=== PATIENT | female | born 1990 | race Caucasian/White ===

== ENCOUNTER 2021-10-13 22:16 | Emergency (ER) | payer BC, MEDICAID ==
[~2021-10-13 22:16] MED LIST: DEPOPROVERA SHOT
[2021-10-13 22:50] VITALS: BP_SYST 113; BP_SYST 116; BP_SYST 118; BP_DIAS 63; BP_DIAS 65; BP_DIAS 67
--- NOTE | 2021-10-13 22:50 | ED Syncope ---
General Chief Complaint: Dizziness/Syncope Stated Complaint: DIZZINESS, Source of Information: Patient Exam Limitations: No Limitations History of Present Illness Date Seen by Provider: Oct 13, 2021 Time Seen by Provider: 22:33 Initial Comments Patient presents to the ER by private conveyance with her significant other and chief complaint that last night between the hours of 8:00 and midnight she had about 4 hours of an episode of dizziness. She states her vision felt blurry and she felt like she was drunk. It went away spontaneously and she did not get checked out till today. She is worried about her baby. She discovered about a week ago she was with a positive urine test. She is a G5, P4 at 8 weeks and 4 days based on LMP of August 14. She had no significant problems with previous pregnancies. She has not had problems with blood pressure or swelling. She does not follow routinely with a doctor. She was using some weight loss pills she got off the Internet up until she discovered she was . She does not drink caffeine anymore. She did not pass out. She says her symptoms got worse when she would stand up. No history of vertigo or ear pressure or fevers. No dysuria cough nausea shortness of air. She noted a little red blood on wiping tonight. She is not having abdominal pain or cramping. She has not established care with an obstetrician/gynecologist at this time. She had a history of anemia with her last . Allergies and Home Medications Allergies Coded Allergies: No Known Drug Allergies (Unverified Allergy, Mild, 04/14/07) Patient Home Medication List Home Medication List Reviewed: Yes [Depoprovera Shot] , (Reported) Entered as Reported by: MARCIA KEIM on 04/15/07 1016 Review of Systems Constitutional: see HPI; No chills; dizziness; No fever, No malaise EENTM: No ear discharge, No ear pain Respiratory: No cough, No short of breath Cardiovascular: No chest pain, No edema Gastrointestinal: No abdominal pain, No constipation, No diarrhea, No nausea, No vomiting Genitourinary: No discharge, No dysuria : Yes LMP: Aug 14, 2021 Control/STD Prophylaxis: None Musculoskeletal: No back pain, No joint pain All Other Systems Reviewed Negative Unless Noted: Yes Past Cbbqqxh-Yuaksf-Hquidx Hx Patient Social History Tobacco Use?: No Use of E-Cig and/or Vaping dev: No Substance use?: No Past Medical History Reproductive Disorders: No Physical Exam Vital Signs Vital Signs - First Documented 10/13/21 22:28 Temp 37.0 Pulse 61 Resp 16 B/P (MAP) 125/82 (96) Capillary Refill : Height, Weight, BMI Height: '" Weight: lbs. oz. kg; BMI Method: General Appearance: No Apparent Distress, WD/WN HEENT: PERRL/EOMI, TMs Normal, Normal ENT Inspection, Pharynx Normal, Moist Mucous Membranes, Other (20/50 left eye, 20/50 right eye and 20/50 bilateral) Neck: Full Range of Motion, Normal Inspection Cardiovascular: Regular Rate, Rhythm, No Edema, Normal Peripheral Pulses Respiratory: Lungs Clear, Normal Breath Sounds, No Accessory Muscle Use, No Respiratory Distress Gastrointestinal: Normal Bowel Sounds, No Organomegaly Extremities: Normal Capillary Refill, Normal Inspection, No Pedal Edema Neurologic/Psychiatric: Alert, Oriented x3 Cranial Nerves: Normal Hearing, Normal Speech, PERRL, Other Motor/Sensory: No Motor Deficit, No Sensory Deficit Skin: Normal Color, Warm/Dry Progress/Results/Core Measures Results/Orders Lab Results Laboratory Tests Test 10/13/21 22:46 10/13/21 23:00 Range/Units Urine Color YELLOW Urine Clarity CLEAR Urine pH 7.0 5-9 Urine Specific [place] <=1.005 1.016-1.022 Urine Protein NEGATIVE NEGATIVE Urine Glucose (UA) NEGATIVE NEGATIVE Urine Ketones NEGATIVE NEGATIVE Urine Nitrite NEGATIVE NEGATIVE Urine Bilirubin NEGATIVE NEGATIVE Urine Urobilinogen 0.2 < = 1.0 MG/DL Urine Leukocyte Esterase NEGATIVE NEGATIVE Urine RBC (Auto) NEGATIVE NEGATIVE Urine RBC NONE /HPF Urine WBC NONE /HPF Urine Squamous Epithelial Cells RARE /HPF Urine Crystals NONE /LPF Urine Bacteria NEGATIVE /HPF Urine Casts NONE /LPF Urine Hyaline Casts /LPF Urine Mucus NEGATIVE /LPF Urine Culture Indicated NO White Blood Count 8.2 4.3-11.0 10^3/uL Red Blood Count 3.89 3.80-5.11 10^6/uL Hemoglobin 11.5 11.5-16.0 g/dL Hematocrit 34 L 35-52 % Mean Corpuscular Volume 88 80-99 fL Mean Corpuscular Hemoglobin 30 25-34 pg Mean Corpuscular Hemoglobin Concent 33 32-36 g/dL Red Cell Distribution Width 13.2 10.0-14.5 % Platelet Count 280 130-400 10^3/uL Mean Platelet Volume 10.4 9.0-12.2 fL Immature Granulocyte % (Auto) 0 % Neutrophils (%) (Auto) 62 42-75 % Lymphocytes (%) (Auto) 30 12-44 % Monocytes (%) (Auto) 5 0-12 % Eosinophils (%) (Auto) 2 0-10 % Basophils (%) (Auto) 0 0-10 % Neutrophils # (Auto) 5.1 1.8-7.8 10^3/uL Lymphocytes # (Auto) 2.5 1.0-4.0 10^3/uL Monocytes # (Auto) 0.4 0.0-1.0 10^3/uL Eosinophils # (Auto) 0.1 0.0-0.3 10^3/uL Basophils # (Auto) 0.0 0.0-0.1 10^3/uL Immature Granulocyte # (Auto) 0.0 0.0-0.1 10^3/uL Sodium Level 135 135-145 MMOL/L Potassium Level 3.3 L 3.6-5.0 MMOL/L Chloride Level 102 98-107 MMOL/L Carbon Dioxide Level 21 21-32 MMOL/L Anion Gap 12 5-14 MMOL/L Blood Urea Nitrogen 14 7-18 MG/DL Creatinine 0.70 0.60-1.30 MG/DL Estimat Glomerular Filtration Rate 119 BUN/Creatinine Ratio 20 Glucose Level 81 70-105 MG/DL Calcium Level 8.8 8.5-10.1 MG/DL Corrected Calcium 9.0 8.5-10.1 MG/DL Total Bilirubin 0.2 0.1-1.0 MG/DL Aspartate Amino Transf (AST/SGOT) 14 5-34 U/L Alanine Aminotransferase (ALT/SGPT) 15 0-55 U/L Alkaline Phosphatase 65 40-136 U/L C-Reactive Protein High Sensitivity 1.90 H 0.00-0.50 MG/DL Total Protein 6.5 6.4-8.2 GM/DL Albumin 3.8 3.2-4.5 GM/DL My Orders Orders - FIORELLA MALONEY Cbc With Automated Diff (10/13/21 22:41) Comprehensive Metabolic Panel (10/13/21 22:41) Hs C Reactive Protein (10/13/21 22:41) Ua Culture If Indicated (10/13/21 22:41) Urine Bedside (10/13/21 22:41) Hcg,Quantitative (10/13/21 22:41) Orthostatic Vital Signs (Adult (10/13/21 22:41) Ekg Tracing (10/13/21 22:41) Continuous Ekg Monitoring (10/13/21 22:41) Vital Signs/I&O 10/13/21 10/13/21 22:28 22:50 Temp 37.0 Pulse 61 65 62 67 Resp 16 B/P (MAP) 125/82 (96) 118/67 (84) 116/63 (80) 113/65 (81) Progress Progress Note #1: Time: 22:50 Progress Note The patient states she does not wear corrective lenses however her vision is fairly poor at 20/50. We will recommend a consult to optometry. She endorses an episode dizziness blurry vision lasting about 4 hours last night. She wants to know if her baby is okay. Informed her that at 8 weeks is a little early for us to be able to Doppler heart tones but by taking care of her that is the best thing to do to take care of fetus. She did inquire about getting an ultrasound and we explained that she does not need an emergent ultrasound at this time. She then states she had some bleeding. As we got into it she had a little bit of blood on wiping tonight. We instructed her that it would be okay to follow- up with an obstetrician/gynecologist and pursue ultrasound next week. She is not having any pain. We will get a baseline hCG and ABO Rh. Her orthostatic vital signs are unremarkable. It did not stimulate her symptoms. Her TMs look okay. We will complete a work-up for dizziness including EKG and some labs, urine. Her bedside was positive. Progress Note #2: Time: 23:59 Progress Note We discussed her labs and urine and her need to follow-up with an obstetrician/gynecologist and repeat a beta hCG since she had a little bit of blood on wiping. She is Rh+ based on previous labs. She will not need RhoGAM. We discussed return precautions answered questions and provided her with a list of local providers to follow-up with. Initial ECG Impression Date: Oct 13, 2021 Initial ECG Impression Time: 22:58 Initial ECG Rate: 57 Initial ECG Rhythm: Normal Sinus Initial ECG Intervals: Normal Initial ECG Impression: Normal Initial ECG Comparisson: No Previous ECG Available Comment Normal sinus rhythm without ST elevation or depression. Departure Impression Primary Impression: Dizziness Disposition: 01 HOME, SELF-CARE Condition: Stable Departure-Patient Inst. Decision time for Depature: 00:00 Referrals: CELESTINO BARRERA MD (PCP/Family) Primary Care Physician Patient Instructions: Dizziness, Nonvertigo, (DC), LOCAL PHYSICIAN LIST Add. Discharge Instructions: It is important that you call and make a follow-up appointment with an rn practitioner as your vision is remarkably poor. This may be a contributor to your symptoms last night. You will find a number for one of the obstetricians who can help you with your in the handout. Call them and schedule for follow-up. They can help you get set up for an ultrasound. They can also repeat a beta-hCG lab test to be compared to the blood work done today so we can evaluate if your is progressing normally. Drink plenty of fluids. Avoid caffeine, the weight loss pills, tobacco, ibuprofen etc. Tylenol is okay if you are having pain. You may use pyridoxine 25 mg every 6 hours as needed for nausea or vomiting. Return to the ER promptly if you are having intractable pain that doubles you over despite Tylenol or heavy vaginal bleeding with clots larger than a chicken egg or are going through her more than a maternity pad every hour. When you follow-up with your obstetrician/gynecologist they can reference the labs that were obtained here and continue your work-up in the clinic. Flonase/fluticasone 1 puff each nostril daily for 2 weeks to help with the dizziness. All discharge instructions reviewed with patient and/or family. Voiced understanding. FIORELLA MALONEY Oct 13, 2021 22:50
[2021-10-13 22:57] LABS: BILIRUBIN,URINE NEGATIVE (NEGATIVE); CLARITY,URINE CLEAR; COLOR,URINE YELLOW; GLUCOSE, URINE (UA) NEGATIVE (NEGATIVE); KETONES,URINE NEGATIVE (NEGATIVE); LEUKOCYTE ESTERASE ,URINE NEGATIVE (NEGATIVE); NITRITE,URINE NEGATIVE (NEGATIVE); PROTEIN,URINE NEGATIVE (NEGATIVE)
[2021-10-13 23:10] LABS: BACTERIA,URINE NEGATIVE /HPF
[2021-10-13 23:11] LABS: SQUAMOUS EPITHELIAL CELL,UR RARE /HPF
[2021-10-13 23:16] LABS: BASOPHILS % (AUTO) 0 % (0-10); EOSINOPHILS # (AUTO) 0.1 10^3/uL (0.0-0.3); EOSINOPHILS % (AUTO) 2 % (0-10); HEMATOCRIT 34 % (35-52); HEMOGLOBIN 11.5 g/dL (11.5-16.0); LYMPHOCYTES # (AUTO) 2.5 10^3/uL (1.0-4.0); LYMPHOCYTES % (AUTO) 30 % (12-44); MEAN CORPUSCULAR HEMOGLOBIN 30 pg (25-34); MEAN CORPUSCULAR HGB CONC 33 g/dL (32-36); MEAN CORPUSCULAR VOLUME 88 fL (80-99); MEAN PLATELET VOLUME 10.4 fL (9.0-12.2); MONOCYTES # (AUTO) 0.4 10^3/uL (0.0-1.0); MONOCYTES % (AUTO) 5 % (0-12); NEUTROPHILS # (AUTO) 5.1 10^3/uL (1.8-7.8); NEUTROPHILS % (AUTO) 62 % (42-75); PLATELET COUNT 280 10^3/uL (130-400); WHITE BLOOD COUNT 8.2 10^3/uL (4.3-11.0)
[2021-10-13 23:33] LABS: ALBUMIN 3.8 GM/DL (3.2-4.5); POTASSIUM 3.3 MMOL/L (3.6-5.0)
[2021-10-13 23:34] LABS: CALCIUM 8.8 MG/DL (8.5-10.1)
[2021-10-13 23:35] LABS: TOTAL PROTEIN 6.5 GM/DL (6.4-8.2)
[2021-10-13 23:37] LABS: BILIRUBIN,TOTAL 0.2 MG/DL (0.1-1.0)
[2021-10-13 23:39] LABS: CREATININE SERUM 0.7 MG/DL (0.60-1.30)
[2021-10-14 00:11] VITALS: BP 125/82
== END 2021-10-14 00:13 | disposition home or self-care (01) ==
LOC: EDUNIT# 22:16 → ER 22:19
DX: O26.891 Other specified pregnancy related conditions, first trimester (principal); R42 Dizziness and giddiness; Z3A.08 8 weeks gestation of pregnancy
CPT/HCPCS: 36415; 80053; 81000; 84702; 84703; 85025; 86141; 93005

== ENCOUNTER → 2021-12-19 | Outpatient (CLI) | payer BC ==
--- NOTE | 2021-12-19 14:49 | Diagnostic Imaging Report ---
PROCEDURE: Pelvic comp/transvaginal sonogram. TECHNIQUE: Complete transabdominal and transvaginal pelvic ultrasound was performed. In addition, limited pelvic Doppler was performed. INDICATION: Miscarriage in October. Patient has continued elevated hCG levels. FINDINGS: The uterus is anteverted measuring 9.0 x 5.1 x 6.7 cm. The endometrium is approximately 15 mm in thickness. There is fluid in the endometrial canal. The endometrium is significantly irregular and there is also increased vascularity and features are concerning for retained products of conception. No normal-appearing gestational sac is identified. No definite myometrial mass is detected. The right ovary measures 3.2 x 1.6 x 2.2 cm and the left ovary measures 2.8 x 1.1 x 2.1 cm. IMPRESSION: Irregular and thickened endometrium with hypervascularity, suggestive of retained products of conception. No normal-appearing gestational sac is present. Dictated by: Dictated on workstation # [id number]
== END ==
LOC: RAD 13:00
PROVIDERS: ATTEND Obstetrics & Gynecology
DX: O03.9 Complete or unspecified spontaneous abortion without complication (principal)
CPT/HCPCS: 76830; 76856

== ENCOUNTER 2021-12-28 05:27 | Outpatient (CLI) | payer BC ==
[~2021-12-28] VITALS: Ht 162.6 cm; Wt 86.4 kg
[2021-12-28] MEDS ORDERED: PNV1TABL67 PO ×2 (13:51)
[2021-12-29] MEDS ORDERED: IBUP-1773 PO ×2 (09:07)
== END 2021-12-28 13:54 | disposition home or self-care (01) ==
LOC: PREOP 05:27
PROVIDERS: ATTEND Obstetrics & Gynecology
DX: Z01.818 Encounter for other preprocedural examination (principal); O03.9 Complete or unspecified spontaneous abortion without complication

== ENCOUNTER 2021-12-29 07:10 | Day surgery (SDC) | payer BC ==
[2021-12-29] VITALS (10 sets, daily range): BP systolic 101–109; BP diastolic 60–71
[~2021-12-29] VITALS: Ht 162.6 cm; Wt 86.4 kg
[~2021-12-29 07:10] MED LIST changes: +PNV1TABL67 PO
--- NOTE | 2021-12-29 07:50 | Progress Note-Pre Operative ---
Pre-Operative Progress Note Date of Available H&P: Dec 15, 2021 Date H&P Reviewed: Dec 29, 2021 Time H&P Reviewed: 07:45 History & Physical: H&P Reviewed, Patient Examed, Changes noted below (since visit, has had 3 days of bleeding (prior had been 7 weeks) - will draw beta-hCG quant now to determine if surgery is needed) Pre-Operative Diagnosis: missed LANDRY SCHULER MD Dec 29, 2021 07:50
[2021-12-29] MEDS ORDERED: LACTATED RINGERS 1,000 ML IV PRN (08:00)
[2021-12-29] MEDS ORDERED: DOXYCYCLINE INJECTION 100 MG in NS (IVPB) 100 ML IV ONE (08:00)
[2021-12-29] MEDS ORDERED: BUPIVACAINE 0.5% 30 ML (SENSORCAINE) VIAL ONE (08:02)
[2021-12-29 08:10] LABS: BASOPHILS % (AUTO) 0 % (0-10); EOSINOPHILS # (AUTO) 0.1 10^3/uL (0.0-0.3); EOSINOPHILS % (AUTO) 2 % (0-10); HEMATOCRIT 36 % (35-52); HEMOGLOBIN 12.1 g/dL (11.5-16.0); LYMPHOCYTES # (AUTO) 1.8 10^3/uL (1.0-4.0); LYMPHOCYTES % (AUTO) 37 % (12-44); MEAN CORPUSCULAR HEMOGLOBIN 29 pg (25-34); MEAN CORPUSCULAR HGB CONC 33 g/dL (32-36); MEAN CORPUSCULAR VOLUME 88 fL (80-99); MEAN PLATELET VOLUME 10.9 fL (9.0-12.2); MONOCYTES # (AUTO) 0.3 10^3/uL (0.0-1.0); MONOCYTES % (AUTO) 7 % (0-12); NEUTROPHILS # (AUTO) 2.7 10^3/uL (1.8-7.8); NEUTROPHILS % (AUTO) 54 % (42-75); PLATELET COUNT 233 10^3/uL (130-400)
[2021-12-29] MEDS ORDERED: MIDAZOLAM 2 MG/2 ML (VERSED) VIAL ONE (08:11)
[2021-12-29] MEDS ORDERED: LIDOCAINE PF 2% 5 ML (XYLOCAINE) VIAL ONE (08:11)
[2021-12-29] MEDS ORDERED: ONDANSETRON 4 MG/2 ML (SDV) Z0FRAN ONE (08:11)
[2021-12-29] MEDS ORDERED: proPOfol 200 MG/20 ML (DIPRIVAN) VIAL IV ONE (08:11)
[2021-12-29] MEDS ORDERED: fentaNYL INJ 100 MCG/2 ML AMP ONE (08:11)
[2021-12-29] MEDS ORDERED: IBUP-1773 PO ×2 (09:07)
[2021-12-29] MEDS ORDERED: KETOROLAC 30 MG/ML VIAL IVP ONE (09:15)
[2021-12-29] MEDS ORDERED: ONDANSETRON 4 MG/2 ML (SDV) Z0FRAN IVP PRN ×2 (09:15→10:00)
[2021-12-29] MEDS ORDERED: D5 LR IV SOLUTION 1,000 ML IV SCH (09:15)
[2021-12-29] MEDS ORDERED: SEVOFLURANE (ULTANE) 15 ML INHAL SOLN ONE (09:37)
[2021-12-29] MEDS ORDERED: KETOROLAC 30 MG/ML VIAL ONE (09:39)
[2021-12-29] MEDS ORDERED: morphine INJ 10 MG/ML 1ML (SYR OR VIAL) IVP ONE (10:00)
[2021-12-29] MEDS ORDERED: fentaNYL INJ 100 MCG/2 ML AMP IVP ONE (10:00)
--- NOTE | 2021-12-29 10:40 | Diagnostic Imaging Report ---
INDICATION: Miscarriage with retained product of conception. Study is performed during D&C. Pre and post procedure evaluation of the pelvis was performed. Postprocedure images demonstrate endometrium to be approximately 7 mm in thickness. No abnormal vascularity to the endometrium is seen. No myometrial mass is detected. IMPRESSION: No definite evidence of retained product of conception, post D&C procedure. Dictated by: Dictated on workstation # [id number]
--- NOTE | 2021-12-29 13:46 | Anesthesia-General Post-Op ---
General Patient Condition Mental Status/LOC: Same as Preop Cardiovascular: Satisfactory Nausea/Vomiting: Absent Respiratory: Satisfactory Pain: Controlled Complications: Absent Post Op Complications Complications None Follow Up Care/Instructions Patient Instructions None needed. Anesthesia/Patient Condition Patient Condition Patient is doing well, no complaints, stable vital signs, no apparent adverse anesthesia problems. No complications reported per nursing. NAHID OSUNA CRNA Dec 29, 2021 13:45
--- NOTE | 2021-12-30 03:53 | OPERATIVE REPORT ---
DATE OF SERVICE: 12/29/2021 PREOPERATRIVE DIAGNOSIS: Incomplete miscarriage. POSTOPERATIVE DIAGNOSIS: Incomplete miscarriage. PROCEDURE: Sono-guided suction D and C. SURGEON: Lauren Peterson MD ANESTHESIA: General. COMPLICATIONS: None. CONDITION: Stable. FINDINGS: Beta hCG 80 and transabdominal imaging shows continued retained products with vascular component. INDICATIONS: The patient has been trending hCG quant since she experienced bleeding with first trimester miscarriage over two months ago. The decrease in the clot has slowed and she had not experienced any bleeding since the initial bleed early October. Sono had shown retained products; however, she did have 3 days of bleeding and repeated clots today with Sono to verify that the procedure was in fact still needed. PROCEDURE: Risks, benefits and alternatives of the procedure were explained to the patient. She was taken to the operating room where general anesthesia was obtained without difficulty. She was placed in a dorsal supine position and prepped and draped in the usual sterile fashion. A weighted speculum was placed in the patient's vagina and the anterior lip of the cervix was grasped with a double tooth tenaculum. A paracervical block was placed and the uterus was sounded and cervix dilated to accommodate an 8 mm suction curette. Size 6 and 7 were not available due to shortages. Bedside Sono was utilized to ensure ____ and suction curette was performed until a thin uterine lining was noted. Specimen was sent for pathology and all other instruments were removed from the patient's vagina. Sponge, lap, needle and instrument counts were correct, and she was taken to the recovery room awake and in stable condition. She received doxycycline prior to the procedure due to length of missed AB. Job ID: [id number] DocumentID: [id number] Dictated Date: 12/29/2021 18:15:18 Embalmer Apprentice Date: 12/30/2021 01:53:41 Dictated By: Lauren Peterson MD
== END 2021-12-29 12:15 ==
LOC: SDC 07:10
PROVIDERS: ATTEND Obstetrics & Gynecology
DX: O03.4 Incomplete spontaneous abortion without complication (principal)
CPT/HCPCS: 36415; 76857; 84702; 85025; 86850; 86900; 86901; 87081

== ENCOUNTER 2023-04-05 16:22 | Emergency (ER) | payer BC, OTHER ==
[~2023-04-05] VITALS: Ht 162.6 cm; Wt 98.5 kg
[~2023-04-05 16:22] MED LIST changes: +IBUP-1773 PO
--- NOTE | 2023-04-05 16:54 | ED GU-Female ---
General Chief Complaint: OB > 20 WEEKS Stated Complaint: VAGINAL BLEEDING, HEADACHE, 10 WEEKS PREG Source: patient Exam Limitations: no limitations (MCKENZIE RIZZO APRN) History of Present Illness Date Seen by Provider: Apr 05, 2023 Time Seen by Provider: 16:24 Initial Comments 32-year-old female at 11 weeks and 5 days presents to the ER with complaint of vaginal bleeding starting today. She reports that she had 1 episode of brown discharge when she went to the restroom, and then approximately 20 minutes later she had another episode of a small amount of bright red blood when wiping. She denies any abdominal pain. Denies any other vaginal discharge. Denies dysuria. Her last menstrual cycle was either January 12 or . She reports that she has had a previous ultrasound, this was completed on March 15 and showed her to be at 8 weeks 5 days gestation at that time. She is G6, P2. She has had 3 miscarriages, and states that the previous ones started like this. She currently takes Lovenox, aspirin, and vaginal progesterone. Her OB is Dr. Mendoza. (MCKENZIE RIZZO APRN) Allergies and Home Medications Allergies Coded Allergies: No Known Drug Allergies (Unverified , 12/29/21) Patient Home Medication List Home Medication List Reviewed: Yes (MCKENZIE RIZZO APRN) Ibuprofen (Ibuprofen) 600 Mg Tablet, 600 MG PO Q6H PRN for PAIN-MILD Prescribed by: Lauren Peterson on 12/29/21 0907 Metronidazole (Metronidazole) 500 Mg Tablet, 500 MG PO BID Prescribed by: Mckenzie Ferrara on 04/05/23 1847 Pnv with Ca,No.72/Iron/FA (Pnv Plus Multivit Tab) 27 Mg Iron-1 Mg Tablet, 1 EACH PO DAILY, (Reported) Entered as Reported by: LOUANN FUENTES on 12/28/21 1351 Review of Systems Review of Systems Constitutional: see HPI (MCKENZIE RIZZO APRN) Past Xjxeuyo-Ynbwzs-Vhegih Hx Immunizations Up To Date Tetanus Booster (TDap): Unknown (MCKENZIE RIZZO APRN) Seasonal Allergies Seasonal Allergies: No (MCKENZIE RIZZO APRN) Past Medical History Surgery/Hospitalization HX: MISCARRIAGE X2 Surgeries: No Respiratory: No Cardiac: No Neurological: No Reproductive Disorders: No Genitourinary: No Gastrointestinal: No Musculoskeletal: No Endocrine: No HEENT: No Cancer: No Psychosocial: No Integumentary: No Blood Disorders: No (MCKENZIE RIZZO APRN) Physical Exam Vital Signs Vital Signs - First Documented 04/05/23 17:11 Temp 36.5 Pulse 75 Resp 20 B/P (MAP) 125/83 (97) Pulse Ox 99 (CANDY LEIGH MD) Vital Signs Capillary Refill : (MCKENZIE RIZZO APRN) Height, Weight, BMI Height: '" Weight: lbs. oz. kg; 32.67 BMI Method: General Appearance: WD/WN, no apparent distress Neck: supple, normal inspection Cardiovascular: regular rate, rhythm Respiratory: lungs clear, normal breath sounds, no respiratory distress, no accessory muscle use Pelvic: normal external exam, normal adnexa, discharge (Brown-colored discharge); No vaginal bleeding (No active bleeding, os appears closed) Extremities: normal range of motion, normal inspection Neurologic/Psychiatric: alert, normal mood/affect Skin: normal color, warm/dry (MCKENZIE RIZZO APRN) Progress/Results/Core Measures Suspected Sepsis SIRS Temperature: Pulse: Respiratory Rate: Laboratory Tests 04/05/23 17:06: White Blood Count 10.2 Blood Pressure / Mean: Laboratory Tests 04/05/23 17:06: Creatinine 0.73, Platelet Count 291, Total Bilirubin 0.1 (MCKENZIE RIZZO APRN) Results/Orders Lab Results Laboratory Tests Test 04/05/23 17:06 04/05/23 17:55 Range/Units White Blood Count 10.2 4.3-11.0 10^3/uL Red Blood Count 4.18 3.80-5.11 10^6/uL Hemoglobin 12.0 11.5-16.0 g/dL Hematocrit 37 35-52 % Mean Corpuscular Volume 88 80-99 fL Mean Corpuscular Hemoglobin 29 25-34 pg Mean Corpuscular Hemoglobin Concent 33 32-36 g/dL Red Cell Distribution Width 13.9 10.0-14.5 % Platelet Count 291 130-400 10^3/uL Mean Platelet Volume 10.4 9.0-12.2 fL Immature Granulocyte % (Auto) 1 % Neutrophils (%) (Auto) 71 42-75 % Lymphocytes (%) (Auto) 24 12-44 % Monocytes (%) (Auto) 3 0-12 % Eosinophils (%) (Auto) 2 0-10 % Basophils (%) (Auto) 0 0-10 % Neutrophils # (Auto) 7.2 1.8-7.8 10^3/uL Lymphocytes # (Auto) 2.4 1.0-4.0 10^3/uL Monocytes # (Auto) 0.3 0.0-1.0 10^3/uL Eosinophils # (Auto) 0.2 0.0-0.3 10^3/uL Basophils # (Auto) 0.0 0.0-0.1 10^3/uL Immature Granulocyte # (Auto) 0.1 0.0-0.1 10^3/uL Urine Color YELLOW Urine Clarity CLEAR Urine pH 5.5 5-9 Urine Specific [place] 1.010 L 1.016-1.022 Urine Protein NEGATIVE NEGATIVE Urine Glucose (UA) NEGATIVE NEGATIVE Urine Ketones NEGATIVE NEGATIVE Urine Nitrite NEGATIVE NEGATIVE Urine Bilirubin NEGATIVE NEGATIVE Urine Urobilinogen 0.2 < = 1.0 MG/DL Urine Leukocyte Esterase NEGATIVE NEGATIVE Urine RBC (Auto) 1+ H NEGATIVE Urine RBC RARE /HPF Urine WBC NONE /HPF Urine Squamous Epithelial Cells RARE /HPF Urine Crystals NONE /LPF Urine Bacteria NEGATIVE /HPF Urine Casts NONE /LPF Urine Mucus NEGATIVE /LPF Urine Culture Indicated NO Sodium Level 133 L 135-145 MMOL/L Potassium Level 3.5 L 3.6-5.0 MMOL/L Chloride Level 103 98-107 MMOL/L Carbon Dioxide Level 22 21-32 MMOL/L Anion Gap 8 5-14 MMOL/L Blood Urea Nitrogen 8 7-18 MG/DL Creatinine 0.73 0.60-1.30 MG/DL Estimat Glomerular Filtration Rate 112 BUN/Creatinine Ratio 11 Glucose Level 99 70-105 MG/DL Calcium Level 8.8 8.5-10.1 MG/DL Corrected Calcium 9.0 8.5-10.1 MG/DL Total Bilirubin 0.1 0.1-1.0 MG/DL Aspartate Amino Transf (AST/SGOT) 11 5-34 U/L Alanine Aminotransferase (ALT/SGPT) 10 0-55 U/L Alkaline Phosphatase 64 40-136 U/L Total Protein 7.4 6.4-8.2 GM/DL Albumin 3.8 3.2-4.5 GM/DL Human Chorionic Gonadotropin, Quant 39826 H <5 MIU/ML (CANDY LEIGH MD) Micro Results Microbiology 04/05/23 Wet Prep - Final, Complete (CANDY LEIGH MD) Vital Signs/I&O Capillary Refill : (MCKENZIE RIZZO APRN) Progress Note : Progress Note Patient seen and evaluated, resting comfortably in bed, tearful, no acute distress. Based on exam and symptoms, differential diagnosis includes but is not limited to miscarriage, threatened miscarriage, UTI, pelvic infection. Workup initiated including CBC, CMP, UA, urine , hCG quantitative. Patient is O+ according to medical records. She does not require RhoGAM. 175 pelvic exam performed. Brown discharge noted, no active bleeding, os appears closed. 1840 Labs reviewed. CBC grossly normal. CMP shows slightly decreased sodium 133, slightly decreased potassium 3.5. hCG quantitative 45,358, this is appropriate for patient's gestational age. Urinalysis shows 1+ RBCs, negative for infection. Wet prep showed few WBCs and few clue cells. Vaginal discharge and bleeding could be related to bacterial vaginosis. Will treat for bacterial vaginosis with Flagyl. First dose of antibiotic given here. Will discharge with prescription for Flagyl. Nursing staff was unable to Doppler heart tones, but Dr. Joseph, ER physician, was able to visualize fetus and heart tones on ultrasound. He reported heart rate was 162. He states that the fetus was moving at lot. Patient instructed to follow-up with Dr. Mendoza next week. She currently has an appointment next 04/11/2023, but I instructed her to call the office tomorrow or Sunday to see if they want to see her sooner. Patient instructed to practice pelvic rest and to take it easy. Patient is stable for discharge. Discharge instructions and return precautions provided. (MCKENZIE RIZZO APRN) Departure Impression Primary Impression: Vaginal bleeding affecting early Additional Impression: Bacterial vaginosis in Disposition: HOME, SELF-CARE Condition: Stable Departure-Patient Inst. Decision time for Depature: 18:43 (MCKENZIE RIZZO APRN) Referrals: CELESTINO BARRERA MD (PCP/Family) Primary Care Physician ZAC MENDOZA DO Patient Instructions: Bleeding in Early ED Add. Discharge Instructions: Call Dr. Mendoza's office tomorrow, if the office is closed, call on Sunday. Let them know that you were seen in the ER for vaginal bleeding. Complete full course of the antibiotic as prescribed. You will order picker/assembler the prescription at the pharmacy tomorrow. It is important that you treat this infection, because infections can cause complications including miscarriages in . Pelvic rest until you see Dr. Mendoza. Nothing into the vagina, no intercourse. Also take it easy, no heavy lifting. Return if you are saturating a heavy menstrual pad every hour for several hours, you become dizzy or lightheaded, you pass out, or any other new, concerning, or worsening symptoms. All discharge instructions reviewed with patient and/or family. Voiced understanding. Scripts Metronidazole (Metronidazole) 500 Mg Tablet 500 MG PO BID for 7 Days, #13 TAB 0 Refills Prov: MCKENZIE RIZZO APRN 04/05/23 ATTENDING PHYSICIAN NOTE: I was physically present as attending physician in the emergency department during the care of this patient. I briefly discussed approach to care of this patient with Mckenzie Rizzo NP. Labs were reviewed. FHT confirmed at bedside by Dr. Joseph. I did not personally interview or examine this patient. I was not otherwise directly involved in the decision making or delivery of care for this patient. (CANDY LEIGH MD) Copy Copies To 1: ZAC MENDOZA BRITTANY R APRN Apr 05, 2023 16:54 CANDY LEIGH MD Apr 06, 2023 14:05
[2023-04-05 17:21] LABS: BASOPHILS % (AUTO) 0 % (0-10); EOSINOPHILS # (AUTO) 0.2 10^3/uL (0.0-0.3); EOSINOPHILS % (AUTO) 2 % (0-10); HEMATOCRIT 37 % (35-52); LYMPHOCYTES # (AUTO) 2.4 10^3/uL (1.0-4.0); LYMPHOCYTES % (AUTO) 24 % (12-44); MEAN CORPUSCULAR HEMOGLOBIN 29 pg (25-34); MEAN CORPUSCULAR HGB CONC 33 g/dL (32-36); MEAN CORPUSCULAR VOLUME 88 fL (80-99); MEAN PLATELET VOLUME 10.4 fL (9.0-12.2); MONOCYTES # (AUTO) 0.3 10^3/uL (0.0-1.0); MONOCYTES % (AUTO) 3 % (0-12); NEUTROPHILS # (AUTO) 7.2 10^3/uL (1.8-7.8); NEUTROPHILS % (AUTO) 71 % (42-75); PLATELET COUNT 291 10^3/uL (130-400); WHITE BLOOD COUNT 10.2 10^3/uL (4.3-11.0)
[2023-04-05 17:23] LABS: ALBUMIN 3.8 GM/DL (3.2-4.5)
[2023-04-05 17:24] LABS: POTASSIUM 3.5 MMOL/L (3.6-5.0)
[2023-04-05 17:25] LABS: CALCIUM 8.8 MG/DL (8.5-10.1)
[2023-04-05 17:26] LABS: TOTAL PROTEIN 7.4 GM/DL (6.4-8.2)
[2023-04-05 17:28] LABS: BACTERIA,URINE NEGATIVE /HPF; BILIRUBIN,TOTAL 0.1 MG/DL (0.1-1.0); BILIRUBIN,URINE NEGATIVE (NEGATIVE); CLARITY,URINE CLEAR; COLOR,URINE YELLOW; GLUCOSE, URINE (UA) NEGATIVE (NEGATIVE); KETONES,URINE NEGATIVE (NEGATIVE); LEUKOCYTE ESTERASE ,URINE NEGATIVE (NEGATIVE); NITRITE,URINE NEGATIVE (NEGATIVE); PH,URINE 5.5 (5-9); PROTEIN,URINE NEGATIVE (NEGATIVE); RBC,URINE RARE /HPF; SQUAMOUS EPITHELIAL CELL,UR RARE /HPF
[2023-04-05 17:30] LABS: CREATININE SERUM 0.73 MG/DL (0.60-1.30)
[2023-04-05] MEDS ORDERED: metroNIDAZOLE 500 MG TABLET PO ONE (18:45)
[2023-04-05] MEDS ORDERED: METR-145 PO (18:47)
[2023-04-05 18:57] VITALS: BP 128/67
== END 2023-04-05 18:57 | disposition home or self-care (01) ==
LOC: ER 16:22
DX: O23.591 Infection of other part of genital tract in pregnancy, first trimester (principal); N76.0 Acute vaginitis; Z3A.10 10 weeks gestation of pregnancy
CPT/HCPCS: 36415; 80053; 81000; 84702; 84703; 85025; 87210; 87491; 87591

== ENCOUNTER 2023-04-09 19:58 | Emergency (ER) | payer BC ==
[~2023-04-09] VITALS: Ht 162.5 cm; Wt 90.7 kg
[~2023-04-09 19:58] MED LIST changes: +METR-145 PO
--- NOTE | 2023-04-09 20:12 | ED General ---
General Stated Complaint: NEEDS MEDS REFILLED, FOR Source of Information: Patient History of Present Illness Date Seen by Provider: Apr 09, 2023 Time Seen by Provider: 20:05 Initial Comments PT ARRIVES VIA POV FROM HOME PT STATES SHE IS --APPROXIMATELY 9 WEEKS GESTAION, HAS LUPUS AND TAKES LOVENOX DAILY FOR CLOTTING DISORDER, WITH MULTIPLE MISCARRIAGES. SHE DID NOT REFILL HER LOVENOX TODAY ( SUNDAY) AND PHARMACY CLOSED AT 1900. PT HAS PLENTY OF REFILLS--SIMPLY DID NOT GO TO PHARMACY TODAY. SHE HAS AN APPOINTMENT WITH SPECIALIST IN [place] IN THE MORNING SHE SEES DR. JACOBSON LOCALLY FOR OB CARE PT WAS SEEN HERE 04/05/23 FOR SCANT VAGINAL SPOTTING. SHE HAS NOT HAD ANY BLEEDING OR PAIN / CRAMPING SINCE THEN PT HAS NO COMPLAINTS AT THIS TIME Allergies and Home Medications Allergies Coded Allergies: No Known Drug Allergies (Unverified , 12/29/21) Patient Home Medication List Home Medication List Reviewed: Yes Ibuprofen (Ibuprofen) 600 Mg Tablet, 600 MG PO Q6H PRN for PAIN-MILD Prescribed by: Lauren Peterson on 12/29/21 0907 Metronidazole (Metronidazole) 500 Mg Tablet, 500 MG PO BID Prescribed by: Mckenzie Ferrara on 04/05/23 1847 Pnv with Ca,No.72/Iron/FA (Pnv Plus Multivit Tab) 27 Mg Iron-1 Mg Tablet, 1 EACH PO DAILY, (Reported) Entered as Reported by: LOUANN FUENTES on 12/28/21 1351 Review of Systems Review of Systems Constitutional: no symptoms reported Past [facility]z-Tbfpay-Bzqgat Hx Immunizations Up To Date Tetanus Booster (TDap): Unknown Seasonal Allergies Seasonal Allergies: No Past Medical History Surgery/Hospitalization HX: MISCARRIAGE X 3 Surgeries: No Respiratory: No Cardiac: No Neurological: No : Yes Reproductive Disorders: Yes (MULTIPLE MISCARRIAGES) Genitourinary: No Gastrointestinal: No Musculoskeletal: No Endocrine: Yes Lupus HEENT: No Cancer: No Psychosocial: No Integumentary: No Blood Disorders: Yes (LUPUS; CLOTTING DISORDER) Physical Exam Vital Signs Capillary Refill : Height, Weight, BMI Height: '" Weight: lbs. oz. kg; 37.00 BMI Method: General Appearance: No Apparent Distress, WD/WN Progress/Results/Core Measures Suspected Sepsis SIRS Temperature: Pulse: Respiratory Rate: Blood Pressure / Mean: Results/Orders My Orders Orders - RICHARD CLEVELAND DO Enoxaparin Injection (Enoxaparin Injecti (04/09/23 20:15) Vital Signs/I&O Capillary Refill : Progress Note : Progress Note VITALS STABLE GIVEN LOVENOX 40 MG SUB Q, HER NORMAL DOSE ADVISED THAT IN THE FUTURE SHE NEEDS TO MAKE SURE SHE REFILLS HER MEDICATIONS BEFORE RUNNING OUT ADVISED TO KEEP APPOINTMENT WITH SPECIALIST IN TOMORROW, AND FOLLOW UP WITH DR. JACOBSON LOCALLY Departure Impression Primary Impression: LOVENOX INJECTION Disposition: HOME, SELF-CARE Condition: Stable Departure-Patient Inst. Decision time for Depature: 20:10 Referrals: REMY,LOCAL PHYSICIAN (PCP) Primary Care Physician ZAC JACOBSON DO (Family) Primary Care Physician Patient Instructions: NO INSTRUCTIONS GIVEN Add. Discharge Instructions: GET YOUR PRESCRIPTION FILLED IN THE MORNING AND DO NOT MISS ANY DOSES, AND MAKE SURE YOU KEEP REFILLING IT BEFORE YOU RUN OUT KEEP YOUR APPOINTMENT TOMORROW IN [place] WITH SPECIALIST FOLLOW UP WITH DR. JACOBSON FOR FURTHER CARE RICHARD CLEVELAND DO Apr 09, 2023 20:11
[2023-04-09] MEDS ORDERED: ENOXAPARIN 40 MG/0.4 ML SYRINGE SC ONE (20:15)
[2023-04-09 20:18] VITALS: BP 127/63
== END 2023-04-09 20:19 | disposition home or self-care (01) ==
LOC: EDUNIT# 19:58 → ER 20:02
DX: O99.891 Other specified diseases and conditions complicating pregnancy (principal); Z76.0 Encounter for issue of repeat prescription; O99.119 Other diseases of the blood and blood-forming organs and certain disorders involving the immune mechanism complicating pregnancy, unspecified trimester; M32.9 Systemic lupus erythematosus, unspecified; Z79.01 Long term (current) use of anticoagulants; Z3A.11 11 weeks gestation of pregnancy
CPT/HCPCS: 99281